=== PATIENT | male | born 1940 | race Caucasian/White ===

== ENCOUNTER → 2018-09-28 | Outpatient (CLI) | payer MEDICARE ==
[~2018-09-28] MED LIST: ASPI81TA85 PO; ATEN25TA PO; DOXY-350 PO; E-Z-GAS II EFFERVESCENT PACKET (SODIUM BICARB./CITRIC ACID/SIMETHICONE) As Ordered ONE; E-Z-HD 98% w/w 340GM SUSP BTL As Ordered ONE; E-Z-PAQUE 96% w/w SUSP 176GM BTL As Ordered ONE; FOSI40TA3 PO; OMEP40CA2 PO; PERCOCET PO; PRAV80TA2 PO; [UNRECOGNIZED DRUG - OTHER] PO
--- NOTE | 2018-09-28 16:45 | REP ---
Examination Requested: Esophagram Barium Swallow Reason For Exam/Comment: Dysphasia Esophagram: The procedure was performed JARET Nair, under the direct supervision of Dr. Moreland. The images were reviewed with Dr. Moreland. A single PA chest x-ray is submitted as a program director scouting film. The superior mediastinal structures are midline. The heart size is within normal limits. The lungs are clear. Liquid barium and gas producing granules were given in the erect position as well as liquid barium in the prone oblique position, in order to perform a double contrast esophagram examination. Oral and pharyngeal stages of the examination were unremarkable. Esophageal transport demonstrates to and fro mechanism with multiple tertiary contractions. There is no esophagitis, stricture, or mucosal ring noted. There is no hiatal hernia noted. Gastroesophageal reflux was not observed throughout the course of the exam. Impression: 1. Presbyesophagus. 0.7 minutes of fluoroscopy time was utilized for this procedure. Some fluoroscopic images are performed with last image hold technology. These images require no additional radiation. Reviewed by JARET Ovalle 09/28/2018 04:31 P Electronically Signed by Ulises Moreland DO 09/28/2018 04:36 P
== END ==
LOC: M RAD 09:38
PROVIDERS: ATTEND Internal Medicine Gastroenterology
DX: R13.10 Dysphagia, unspecified (principal)

== ENCOUNTER → 2021-06-28 | Outpatient (CLI) | payer MEDICARE ==
[~2021-06-28] MED LIST changes: -ASPI81TA85 PO; +ASPI81TA86 PO; -E-Z-GAS II EFFERVESCENT PACKET (SODIUM BICARB./CITRIC ACID/SIMETHICONE) As Ordered ONE; -E-Z-HD 98% w/w 340GM SUSP BTL As Ordered ONE; -E-Z-PAQUE 96% w/w SUSP 176GM BTL As Ordered ONE; -FOSI40TA3 PO; +FOSI40TA59 PO; +MULTCAP PO; -OMEP40CA2 PO; +OMEP40CA4 PO; +XARE10TA PO
== END ==
LOC: M RAD 13:49
PROVIDERS: ATTEND Family Medicine
DX: I73.9 Peripheral vascular disease, unspecified (principal)

== ENCOUNTER → 2021-07-27 | Outpatient (REF) | payer MEDICARE | LOC: M SFHCDERM 14:18 | PROVIDERS: ATTEND Physician Assistant | DX: C44.329 Squamous cell carcinoma of skin of other parts of face (principal) ==

== ENCOUNTER → 2021-10-13 | Outpatient (REF) | payer MEDICARE | LOC: M SFHCDERM 18:21 | PROVIDERS: ATTEND Physician Assistant | DX: C44.329 Squamous cell carcinoma of skin of other parts of face (principal) ==

== ENCOUNTER → 2021-10-24 | Outpatient (CLI) | payer MEDICARE ==
[~2021-10-24] MED LIST changes: +MULT-90 PO
== END ==
LOC: M LABSMTC 08:55
PROVIDERS: ATTEND Anesthesiology
DX: Z11.52 Encounter for screening for COVID-19 (principal); Z20.822 Contact with and (suspected) exposure to COVID-19

== ENCOUNTER 2021-10-26 12:34 | Day surgery (SDC) | payer MEDICARE ==
[~2021-10-26] VITALS: Ht 188 cm; Wt 81.6 kg
[~2021-10-26 12:34] MED LIST changes: +NS 1,000 ML IV ONE
[2021-10-26] MEDS ORDERED: fentaNYL 100 MCG/2 ML INJECTION As Ordered ONE (14:54)
[2021-10-26] MEDS ORDERED: LIDOCAINE 2% 100MG/5ML SDV (FOR ANES.) As Ordered ONE (15:01)
[2021-10-26] MEDS ORDERED: propofoL 200 MG/20 ML VIAL As Ordered ONE (15:01)
[2021-10-26 15:35] VITALS: BP 177/92
== END 2021-10-26 15:47 | disposition home or self-care (01) ==
LOC: M OPP 12:34
PROVIDERS: ATTEND Internal Medicine Gastroenterology
DX: K22.4 Dyskinesia of esophagus (principal); R13.14 Dysphagia, pharyngoesophageal phase; Z79.02 Long term (current) use of antithrombotics/antiplatelets; Z79.899 Other long term (current) drug therapy; Z87.891 Personal history of nicotine dependence; I10 Essential (primary) hypertension; I48.91 Unspecified atrial fibrillation
CPT/HCPCS: 43249; J3010

== ENCOUNTER → 2022-01-18 | Outpatient (REF) | payer MEDICARE ==
[~2022-01-18] MED LIST changes: -DOXY-350 PO; +DOXY-444 PO; -NS 1,000 ML IV ONE
== END ==
LOC: M SFHCDERM 09:07
PROVIDERS: ATTEND Dermatology
DX: D48.9 Neoplasm of uncertain behavior, unspecified (principal); C44.91 Basal cell carcinoma of skin, unspecified

== ENCOUNTER → 2022-12-05 | Outpatient (CLI) | payer MEDICARE | LOC: M RAD 09:19 | PROVIDERS: ATTEND Family Medicine | DX: M51.26 Other intervertebral disc displacement, lumbar region (principal) ==

== ENCOUNTER → 2023-01-04 | Outpatient (REF) | payer MEDICARE | LOC: M SFHCDERM 17:43 | PROVIDERS: ATTEND Physician Assistant | DX: C44.622 Squamous cell carcinoma of skin of right upper limb, including shoulder (principal) ==

== ENCOUNTER → 2023-05-30 | Outpatient (REF) | payer MEDICARE | LOC: M SFHCDERM 17:42 | PROVIDERS: ATTEND Physician Assistant | DX: L82.1 Other seborrheic keratosis (principal); L57.8 Other skin changes due to chronic exposure to nonionizing radiation; D04.61 Carcinoma in situ of skin of right upper limb, including shoulder; C44.529 Squamous cell carcinoma of skin of other part of trunk ==

== ENCOUNTER → 2023-08-08 | Outpatient (REF) | payer MEDICARE ==
[~2023-08-08] MED LIST changes: +DOXY-440 PO; -DOXY-444 PO
== END ==
LOC: M SFHCDERM 17:38
PROVIDERS: ATTEND Physician Assistant
DX: C44.92 Squamous cell carcinoma of skin, unspecified (principal)

== ENCOUNTER → 2023-10-30 | Outpatient (REF) | payer MEDICARE | LOC: M SFHCDERM 18:03 | PROVIDERS: ATTEND Physician Assistant | DX: C44.219 Basal cell carcinoma of skin of left ear and external auricular canal (principal) ==

== ENCOUNTER 2024-11-21 07:40 | Day surgery (SDC) | payer MEDICARE ==
[~2024-11-21] VITALS: Ht 188 cm; Wt 82.9 kg
[~2024-11-21 07:40] MED LIST changes: +OMEG10002 PO; -PRAV80TA2 PO; +PRAV80TA75 PO
[2024-11-21] MEDS ORDERED: LIDOCAINE 2% 100 MG/5 ML SDV (FOR ANES.) As Ordered ONE (08:45)
[2024-11-21 09:00] VITALS: TEMP 98
[2024-11-21 09:16] VITALS: BP 128/76; O2SAT 97
== END 2024-11-21 09:24 | disposition home or self-care (01) ==
LOC: M OPP 07:40
PROVIDERS: ATTEND Surgery
DX: K22.4 Dyskinesia of esophagus (principal); K44.9 Diaphragmatic hernia without obstruction or gangrene; K21.00 Gastro-esophageal reflux disease with esophagitis, without bleeding; K29.70 Gastritis, unspecified, without bleeding; K29.80 Duodenitis without bleeding; R13.10 Dysphagia, unspecified; I48.91 Unspecified atrial fibrillation; Z79.01 Long term (current) use of anticoagulants; Z79.899 Other long term (current) drug therapy
CPT/HCPCS: 43245; 88305; J3010